=== PATIENT | female | born 1965 | race African-American/Black ===

== ENCOUNTER 2023-06-11 11:44 | Emergency (ER) | payer OTHER ==
[2023-06-11] MEDS ORDERED: Famotidine 20 MG TAB ONE (12:31)
[2023-06-11] MEDS ORDERED: diphenhydrAMINE 50 MG/ML VIAL ONE (12:31)
[2023-06-11] MEDS ORDERED: methylPREDNISolone Sod Succ/PF 125 MG/2 ML VIAL ONE (12:31)
== END 2023-06-11 13:42 | disposition home or self-care (01) ==
LOC: ERS 11:44
DX: T78.40XA Allergy, unspecified, initial encounter (principal); F17.200 Nicotine dependence, unspecified, uncomplicated
CPT/HCPCS: 96372; 99283; J1200; J2930